=== PATIENT | female | born 1945 | race Caucasian/White ===

== ENCOUNTER 2021-09-04 10:09 | Outpatient (CLI) | payer MEDICARE ==
[2021-09-04 12:47] LABS: Hemoglobin 10.2 g/dL (12.0-15.5)
[2021-09-04 13:21] LABS: Anion Gap 14 mmol/L (10-20); BUN (Urea Nitrogen) 25 mg/dL (9.8-20.1); Calc. Creatinine Clearance 0 mL/min (70-130); Calcium 9.1 mg/dL (7.8-10.44); Carbon Dioxide 25 mmol/L (23-31); Chloride 105 mmol/L (98-107); Glucose 92 mg/dL (83-110); Potassium 5.4 mmol/L (3.5-5.1); Sodium 139 mmol/L (136-145)
[2021-09-04 22:21] LABS: SARS-CoV-2 PCR by NAA Not Detected (NotDetected)
== END 2021-09-04 10:10 | disposition home or self-care (01) ==
LOC: CSHLAB 10:09
PROVIDERS: ATTEND Otolaryngology Plastic Surgery within the Head & Neck
DX: Z01.812 Encounter for preprocedural laboratory examination (principal); Z20.822 Contact with and (suspected) exposure to COVID-19; K14.8 Other diseases of tongue; H61.23 Impacted cerumen, bilateral
CPT/HCPCS: 80048; 85014; 85018; U0003; U0005